=== PATIENT | male | born 1930 | race Caucasian/White ===

== ENCOUNTER 2017-09-03 16:42 | Inpatient (IN) | payer OTHER, MEDICAID ==
[~2017-09-03] VITALS: Ht 175.3 cm; Wt 88.9 kg
[2017-09-03] MEDS ORDERED: FLUT16SP BNOSTRILS (16:58)
[2017-09-03] MEDS ORDERED: MAGN400O6 PO (16:58)
[2017-09-03] MEDS ORDERED: PYRI50TA74 PO (16:58)
[2017-09-03] MEDS ORDERED: AMLO10TA2 PO (16:58)
[2017-09-03] MEDS ORDERED: PSYL0.5211 PO (16:58)
[2017-09-03] MEDS ORDERED: PROM6.25 PO (16:58)
[2017-09-03] MEDS ORDERED: FURO-145 PO (16:58)
[2017-09-03] MEDS ORDERED: BISA10SU8 RC (16:58)
[2017-09-03] MEDS ORDERED: ASPI-1169 PO (16:58)
[2017-09-03] MEDS ORDERED: ACET-868 PO (16:58)
[2017-09-03] MEDS ORDERED: DONE10TA44 PO (16:58)
[2017-09-03] MEDS ORDERED: ATOR40TA PO (16:58)
[2017-09-03 17:20] LABS: BASOPHILS % (AUTO) 0.2 % (0.0-2.0); EOSINOPHILS # (AUTO) 0.2 /CMM (0.0-0.7); HEMATOCRIT 41 % (39-51); HEMOGLOBIN 13.9 g/dL (13.5-17.5); LYMPHOCYTES # (AUTO) 2.7 /CMM (0.8-4.8); LYMPHOCYTES % (AUTO) 31.3 % (20.0-44.0); MEAN CORPUSCULAR HEMOGLOBIN 29 PG (26.0-33.0); MEAN CORPUSCULAR HGB CONC 34 g/dl (31.0-36.0); MEAN CORPUSCULAR VOLUME 87 fL (80-96); MONOCYTES # (AUTO) 0.7 /CMM (0.1-1.30); MONOCYTES % (AUTO) 7.7 % (2.0-12.0); NEUTROPHILS # (AUTO) 5.2 /CMM (1.8-8.9); NEUTROPHILS % (AUTO) 58.8 % (43.0-81.0); PLATELET COUNT (AUTO) 417 /CMM (150-450); RDW COEFFICIENT OF VARIATION 13.7 (11.5-15.0); RED BLOOD CELL COUNT(AUTO) 4.74 MIL/uL (4.5-6.0); WHITE BLOOD COUNT (AUTO) 8.8 K/uL (4.3-11.0)
[2017-09-03 17:34] LABS: INR 0.94 (0.85-1.15)
[2017-09-03 17:40] LABS: CALCIUM, SERUM 9.7 mg/dL (8.5-10.1); CARBON DIOXIDE 28 mmol/L (21-32); CHLORIDE 105 mmol/L (98-107); CREATININE 1.7 mg/dL (0.6-1.3); GLUCOSE 120 mg/dL (74-106); POTASSIUM 4.7 mmol/L (3.5-5.1); SODIUM SERUM 142 mmol/L (136-145); UREA NITROGEN, BLOOD 27 mg/dL (7-18)
[2017-09-03 17:49] LABS: TROPONIN I < 0.017 ng/mL (0.00-0.056)
[2017-09-03] MEDS ORDERED: NITROGLYCERIN PACKET 1 GM PACKET ONE (18:37)
[2017-09-03] MEDS ORDERED: ASPIRIN 81 MG TAB.CHEW ONE (18:38)
[2017-09-03 19:00] VITALS: BP 142/90
[2017-09-03] MEDS ORDERED: NITROGLYCERIN PACKET 1 GM PACKET TD ONE (19:00)
[2017-09-03] MEDS ORDERED: ASPIRIN 81 MG TAB.CHEW PO SCH (19:00)
[2017-09-03] MEDS ORDERED: ACETAMINOPHEN 325 MG TABLET PO PRN (19:30)
[2017-09-03] MEDS ORDERED: ONDANSETRON HCL/PF 4 MG/2 ML VIAL IVP PRN (19:30)
[2017-09-03] MEDS ORDERED: BISACODYL SUPP (10 MG) 10 MG/SUPP.RECT SUPP.RECT RC PRN (19:30)
[2017-09-03 20:00] VITALS: BP 129/88
[2017-09-03] MEDS: FUROSEMIDE 20 MG TABLET PO SCH (20:15)
[2017-09-03 20:37] VITALS: BP 110/82
[2017-09-03] MEDS: MORPHINE SULFATE INJ 4 MG/ML DISP.SYRIN IV PRN ×2 (20:37→21:24)
[2017-09-03] MEDS: ATORVASTATIN 40 MG TABLET PO SCH (21:24)
[2017-09-03 21:54] VITALS: BP 132/74
[2017-09-03] MEDS: NITROGLYCERIN 0.4 MG/TAB BOTTLE SL PRN (23:10)
[2017-09-03] MEDS: AMLODIPINE BESYLATE 10 MG TABLET PO SCH (23:12)
[2017-09-03 23:15] VITALS: BP 127/85
[2017-09-04] VITALS: BP 130/77
[2017-09-04] MEDS: NITROGLYCERIN 0.4 MG/TAB BOTTLE SL PRN (01:39)
[2017-09-04 03:46] LABS: BASOPHILS % (AUTO) 0.2 % (0.0-2.0); HEMATOCRIT 40 % (39-51); HEMOGLOBIN 13.1 g/dL (13.5-17.5); LYMPHOCYTES # (AUTO) 1.3 /CMM (0.8-4.8); LYMPHOCYTES % (AUTO) 14.1 % (20.0-44.0); MEAN CORPUSCULAR HEMOGLOBIN 29 PG (26.0-33.0); MEAN CORPUSCULAR HGB CONC 33 g/dl (31.0-36.0); MEAN CORPUSCULAR VOLUME 88 fL (80-96); MONOCYTES # (AUTO) 0.8 /CMM (0.1-1.30); MONOCYTES % (AUTO) 8.8 % (2.0-12.0); NEUTROPHILS # (AUTO) 7.2 /CMM (1.8-8.9); NEUTROPHILS % (AUTO) 76.9 % (43.0-81.0); PLATELET COUNT (AUTO) 368 /CMM (150-450); RDW COEFFICIENT OF VARIATION 14.9 (11.5-15.0); RED BLOOD CELL COUNT(AUTO) 4.48 MIL/uL (4.5-6.0); WHITE BLOOD COUNT (AUTO) 9.3 K/uL (4.3-11.0)
[2017-09-04 04:00] VITALS: BP 131/85
[2017-09-04 04:03] LABS: CALCIUM, SERUM 9.7 mg/dL (8.5-10.1); CARBON DIOXIDE 26 mmol/L (21-32); CHLORIDE 105 mmol/L (98-107); GLUCOSE 131 mg/dL (74-106); MAGNESIUM 2.2 mg/dL (1.8-2.4); PHOSPHORUS 3.7 mg/dL (2.5-4.9); POTASSIUM 5.2 mmol/L (3.5-5.1); SODIUM SERUM 139 mmol/L (136-145); UREA NITROGEN, BLOOD 33 mg/dL (7-18)
[2017-09-04 04:06] LABS: CHOLESTEROL 122 mg/dL (<200); HDL CHOLESTEROL 64 mg/dL (40-60); LDL 51 mg/dL (0-99); TRIGLYCERIDES 70 mg/dL (30-150)
[2017-09-04 06:57] VITALS: BP 129/85
[2017-09-04] MEDS: DONEPEZIL 5 MG TABLET PO SCH (09:01)
[2017-09-04] MEDS: FUROSEMIDE 20 MG TABLET PO SCH (09:01)
[2017-09-04] MEDS: FLUTICASONE PROPIONATE 16 GM BOTTLE NS SCH (09:01)
[2017-09-04] MEDS: ASPIRIN 81 MG TAB.CHEW PO SCH (09:01)
[2017-09-04] MEDS: MORPHINE SULFATE INJ 4 MG/ML DISP.SYRIN IV PRN ×2 (09:15→20:04)
[2017-09-04 12:28] VITALS: BP 142/93
[2017-09-04] MEDS ORDERED: SODIUM POLYSTYRENE SULFONATE 15 G/60 ML BOTTLE PO ONE (13:00)
[2017-09-04] MEDS ORDERED: Z GUARD REMEDY 2 OZ OINT TP PRN (15:00)
[2017-09-04 16:54] VITALS: BP 132/85
[2017-09-04 20:00] VITALS: BP 137/70
[2017-09-04] MEDS ORDERED: PANTOPRAZOLE 40 MG VIAL IV SCH (21:00)
[2017-09-04] MEDS: ATORVASTATIN 40 MG TABLET PO SCH (21:46)
[2017-09-04] MEDS: AMLODIPINE BESYLATE 10 MG TABLET PO SCH (21:51)
[2017-09-05] VITALS: BP 124/85
[2017-09-05 08:00] VITALS: BP 135/92
[2017-09-05] MEDS: DONEPEZIL 5 MG TABLET PO SCH (08:58)
[2017-09-05] MEDS: FUROSEMIDE 20 MG TABLET PO SCH (08:58)
[2017-09-05] MEDS: ASPIRIN 81 MG TAB.CHEW PO SCH (08:58)
[2017-09-05] MEDS: FLUTICASONE PROPIONATE 16 GM BOTTLE NS SCH (08:58)
[2017-09-05] MEDS: Z GUARD REMEDY 2 OZ OINT TP SCH (08:59)
[2017-09-05 09:32] LABS: CALCIUM, SERUM 9.7 mg/dL (8.5-10.1); CARBON DIOXIDE 28 mmol/L (21-32); CHLORIDE 101 mmol/L (98-107); CREATININE 1.7 mg/dL (0.6-1.3); GLUCOSE 114 mg/dL (74-106); POTASSIUM 3.8 mmol/L (3.5-5.1); SODIUM SERUM 140 mmol/L (136-145); UREA NITROGEN, BLOOD 29 mg/dL (7-18)
[2017-09-05] MEDS: PANTOPRAZOLE 40 MG VIAL IV SCH ×2 (09:39→21:06)
[2017-09-05 09:46] LABS: BASOPHILS % (AUTO) 0.3 % (0.0-2.0); EOSINOPHILS # (AUTO) 0.1 /CMM (0.0-0.7); EOSINOPHILS % (AUTO) 0.6 % (0.0-6.0); HEMATOCRIT 40 % (39-51); HEMOGLOBIN 13.5 g/dL (13.5-17.5); LYMPHOCYTES # (AUTO) 1.7 /CMM (0.8-4.8); LYMPHOCYTES % (AUTO) 16.5 % (20.0-44.0); MEAN CORPUSCULAR HEMOGLOBIN 30 PG (26.0-33.0); MEAN CORPUSCULAR HGB CONC 33 g/dl (31.0-36.0); MEAN CORPUSCULAR VOLUME 88 fL (80-96); MONOCYTES # (AUTO) 1.2 /CMM (0.1-1.30); NEUTROPHILS # (AUTO) 7.2 /CMM (1.8-8.9); NEUTROPHILS % (AUTO) 70.6 % (43.0-81.0); PLATELET COUNT (AUTO) 320 /CMM (150-450); RDW COEFFICIENT OF VARIATION 14.8 (11.5-15.0); RED BLOOD CELL COUNT(AUTO) 4.55 MIL/uL (4.5-6.0); WHITE BLOOD COUNT (AUTO) 10.3 K/uL (4.3-11.0)
[2017-09-05] MEDS: METHOCARBAMOL (750MG) 750 MG TABLET PO SCH ×4 (11:18→22:01)
[2017-09-05] MEDS: DOCUSATE SODIUM 100 MG CAPSULE PO SCH ×2 (11:18→16:29)
[2017-09-05] MEDS: SENNOSIDES 8.6 MG TABLET PO SCH ×2 (11:18→21:07)
[2017-09-05 16:00] VITALS: BP 113/74
[2017-09-05 18:37] VITALS: BP 113/74
[2017-09-05 20:00] VITALS: BP 139/75
[2017-09-05] MEDS: AMLODIPINE BESYLATE 10 MG TABLET PO SCH (21:07)
[2017-09-05] MEDS: ATORVASTATIN 40 MG TABLET PO SCH (21:07)
[2017-09-05] MEDS: ZOLPIDEM TARTRATE 5 MG TABLET PO PRN (21:21)
[2017-09-05 22:00] VITALS: BP 139/75
[2017-09-06] MEDS ORDERED: MORPHINE SULFATE INJ 4 MG/ML DISP.SYRIN IV PRN
[2017-09-06] MEDS: METHOCARBAMOL (750MG) 750 MG TABLET PO SCH ×6 (03:02→22:24)
[2017-09-06 08:00] VITALS: BP 123/79
[2017-09-06] MEDS: DOCUSATE SODIUM 100 MG CAPSULE PO SCH ×2 (08:16→16:50)
[2017-09-06] MEDS: FUROSEMIDE 20 MG TABLET PO SCH (08:16)
[2017-09-06] MEDS: ASPIRIN 81 MG TAB.CHEW PO SCH (08:16)
[2017-09-06] MEDS: PANTOPRAZOLE 40 MG VIAL IV SCH ×2 (08:16→20:27)
[2017-09-06] MEDS: DONEPEZIL 5 MG TABLET PO SCH (08:16)
[2017-09-06] MEDS: FLUTICASONE PROPIONATE 16 GM BOTTLE NS SCH (08:28)
[2017-09-06] MEDS: Z GUARD REMEDY 2 OZ OINT TP SCH (08:29)
[2017-09-06 08:51] LABS: ABG OXYGEN SATURATION 89.5 % (92.0-98.5); ABG PCO2 38.1 mmHg (35.0-45.0); ABG PH 7.478 (7.350-7.450); ABG PO2 57.7 mmHg (75.0-100.0); AaDO2 183.7 mmHg; MetHb 0.4 % (0.0-1.5); O2Hb 88.2 % (94.0-97.0); SITE, ABG Right Radial; VENT MODE, BG 6 LPM SIMPLE O2 MASK
[2017-09-06 09:49] LABS: BASOPHILS % (AUTO) 0.4 % (0.0-2.0); EOSINOPHILS % (AUTO) 0.4 % (0.0-6.0); HEMATOCRIT 38 % (39-51); HEMOGLOBIN 12.8 g/dL (13.5-17.5); LYMPHOCYTES # (AUTO) 1.2 /CMM (0.8-4.8); LYMPHOCYTES % (AUTO) 11.6 % (20.0-44.0); MEAN CORPUSCULAR HEMOGLOBIN 30 PG (26.0-33.0); MEAN CORPUSCULAR HGB CONC 34 g/dl (31.0-36.0); MEAN CORPUSCULAR VOLUME 88 fL (80-96); MONOCYTES # (AUTO) 1.3 /CMM (0.1-1.30); MONOCYTES % (AUTO) 12.7 % (2.0-12.0); NEUTROPHILS # (AUTO) 7.7 /CMM (1.8-8.9); NEUTROPHILS % (AUTO) 74.9 % (43.0-81.0); PLATELET COUNT (AUTO) 294 /CMM (150-450); RDW COEFFICIENT OF VARIATION 14.7 (11.5-15.0); RED BLOOD CELL COUNT(AUTO) 4.29 MIL/uL (4.5-6.0); WHITE BLOOD COUNT (AUTO) 10.3 K/uL (4.3-11.0)
[2017-09-06 10:13] LABS: ALANINE AMINOTRANSFERASE 24 U/L (12-78); ALBUMIN 3.2 g/dL (3.4-5.0); ALKALINE PHOSPHATASE 90 U/L (46-116); ASPARTATE AMINOTRANSFERASE 31 U/L (15-37); BILIRUBIN,TOTAL 1.2 mg/dL (0.2-1.0); CALCIUM, SERUM 9.1 mg/dL (8.5-10.1); CARBON DIOXIDE 28 mmol/L (21-32); CHLORIDE 101 mmol/L (98-107); CREATININE 1.6 mg/dL (0.6-1.3); GLUCOSE 134 mg/dL (74-106); POTASSIUM 3.5 mmol/L (3.5-5.1); SODIUM SERUM 139 mmol/L (136-145); TOTAL PROTEIN, SERUM 7.4 g/dL (6.4-8.2); UREA NITROGEN, BLOOD 27 mg/dL (7-18)
[2017-09-06] MEDS: FUROSEMIDE 40 MG/4 ML VIAL IV SCH (10:21)
[2017-09-06] MEDS: ENOXAPARIN SODIUM 40 MG/0.4 ML DISP.SYRIN SQ SCH (10:24)
[2017-09-06] MEDS: IPRATROPIUM NEB FS 0.5 MG/2.5 ML AMPUL.NEB NEB SCH ×4 (10:33→22:41)
[2017-09-06] MEDS: ALBUTEROL HALF STRENGTH 1.25 MG/3 ML VIAL.NEB NEB SCH ×4 (10:33→22:41)
[2017-09-06 16:00] VITALS: BP 113/75
[2017-09-06 20:00] VITALS: BP 125/74
[2017-09-06] MEDS: ATORVASTATIN 40 MG TABLET PO SCH (22:24)
[2017-09-06] MEDS: SENNOSIDES 8.6 MG TABLET PO SCH (22:24)
[2017-09-06] MEDS: AMLODIPINE BESYLATE 10 MG TABLET PO SCH (22:25)
[2017-09-07] MEDS: METHOCARBAMOL (750MG) 750 MG TABLET PO SCH ×6 (02:36→22:49)
[2017-09-07] MEDS: IPRATROPIUM NEB FS 0.5 MG/2.5 ML AMPUL.NEB NEB SCH ×6 (03:47→23:48)
[2017-09-07] MEDS: ALBUTEROL HALF STRENGTH 1.25 MG/3 ML VIAL.NEB NEB SCH ×6 (03:47→23:48)
[2017-09-07 08:00] VITALS: BP 116/75
[2017-09-07] MEDS: ASPIRIN 81 MG TAB.CHEW PO SCH (08:21)
[2017-09-07] MEDS: FUROSEMIDE 20 MG TABLET PO SCH (08:21)
[2017-09-07] MEDS: DONEPEZIL 5 MG TABLET PO SCH (08:21)
[2017-09-07] MEDS: DOCUSATE SODIUM 100 MG CAPSULE PO SCH ×2 (08:21→18:07)
[2017-09-07] MEDS: FLUTICASONE PROPIONATE 16 GM BOTTLE NS SCH (08:21)
[2017-09-07] MEDS: Z GUARD REMEDY 2 OZ OINT TP SCH (08:55)
[2017-09-07] MEDS: FUROSEMIDE 40 MG/4 ML VIAL IV SCH (08:55)
[2017-09-07] MEDS: PANTOPRAZOLE 40 MG VIAL IV SCH ×2 (08:55→21:56)
[2017-09-07] MEDS: ENOXAPARIN SODIUM 40 MG/0.4 ML DISP.SYRIN SQ SCH (09:01)
[2017-09-07] MEDS ORDERED: BUPIVACAINE 0.5 % PF 150 MG/30 ML VIAL ONE (10:14)
[2017-09-07] MEDS ORDERED: LIDOCAINE 0.5% HCL 50 ML VIAL ONE ×2 (11:28→11:30)
[2017-09-07 12:00] VITALS: BP 126/70
[2017-09-07] MEDS ORDERED: POTASSIUM CHLORIDE 20 MEQ POWDER PACKET PO ONE (12:00)
[2017-09-07] MEDS: Magnesium 1GM/D5W 100ML PREMIX 100 ML IV SCH ×2 (12:23→12:30)
[2017-09-07] MEDS: GABAPENTIN 300 MG CAPSULE PO SCH ×2 (12:45→18:07)
[2017-09-07 16:00] VITALS: BP 119/74
[2017-09-07 16:40] LABS: ABG BASE EXCESS 7.4 mmol/L; ABG PCO2 40.8 mmHg (35.0-45.0); ABG PH 7.501 (7.350-7.450); ABG PO2 77.7 mmHg (75.0-100.0); AaDO2 449.9 mmHg; COHb 0.4 % (0.5-1.5); MetHb 0.3 % (0.0-1.5); O2Hb 94.3 % (94.0-97.0); SITE, ABG Right Radial; VENT MODE, BG NRB
[2017-09-07 19:57] VITALS: BP 122/75
[2017-09-07 20:00] VITALS: BP 122/75
[2017-09-07] MEDS: ATORVASTATIN 40 MG TABLET PO SCH (21:56)
[2017-09-07] MEDS: SENNOSIDES 8.6 MG TABLET PO SCH (21:56)
[2017-09-07] MEDS: AMLODIPINE BESYLATE 10 MG TABLET PO SCH (21:57)
[2017-09-07] MEDS: ZOLPIDEM TARTRATE 5 MG TABLET PO PRN (22:50)
[2017-09-08] VITALS: BP 114/74
[2017-09-08] MEDS: GABAPENTIN 300 MG CAPSULE PO SCH ×5 (00:03→23:11)
[2017-09-08] MEDS: METHOCARBAMOL (750MG) 750 MG TABLET PO SCH ×6 (02:58→23:11)
[2017-09-08 04:00] VITALS: BP 120/67
[2017-09-08] MEDS: ALBUTEROL HALF STRENGTH 1.25 MG/3 ML VIAL.NEB NEB SCH ×6 (04:26→23:03)
[2017-09-08] MEDS: IPRATROPIUM NEB FS 0.5 MG/2.5 ML AMPUL.NEB NEB SCH ×6 (04:26→23:03)
[2017-09-08 08:00] VITALS: BP_SYST 104; BP_SYST 118; BP_SYST 138; BP_DIAS 61; BP_DIAS 65; BP_DIAS 76
[2017-09-08] MEDS: DONEPEZIL 5 MG TABLET PO SCH (08:29)
[2017-09-08] MEDS: ASPIRIN 81 MG TAB.CHEW PO SCH (08:29)
[2017-09-08] MEDS: PANTOPRAZOLE 40 MG VIAL IV SCH ×2 (08:29→21:05)
[2017-09-08] MEDS: FUROSEMIDE 20 MG TABLET PO SCH (08:29)
[2017-09-08] MEDS: FLUTICASONE PROPIONATE 16 GM BOTTLE NS SCH (08:29)
[2017-09-08] MEDS: DOCUSATE SODIUM 100 MG CAPSULE PO SCH ×2 (08:29→16:26)
[2017-09-08] MEDS: ENOXAPARIN SODIUM 40 MG/0.4 ML DISP.SYRIN SQ SCH (08:30)
[2017-09-08] MEDS: Z GUARD REMEDY 2 OZ OINT TP SCH (08:30)
[2017-09-08] MEDS: LIDOCAINE 5% (PATCH) 1 EA PATCH TP SCH (10:31)
[2017-09-08] MEDS: GUAIFENESIN LA 600 MG TABLET.SA PO SCH ×2 (10:31→21:05)
[2017-09-08 12:00] VITALS: BP 112/65
[2017-09-08 16:00] VITALS: BP 104/61
[2017-09-08 20:00] VITALS: BP 117/72
[2017-09-08] MEDS: SENNOSIDES 8.6 MG TABLET PO SCH (21:05)
[2017-09-08] MEDS: ATORVASTATIN 40 MG TABLET PO SCH (21:05)
[2017-09-08] MEDS: AMLODIPINE BESYLATE 10 MG TABLET PO SCH (21:06)
[2017-09-09] VITALS: BP_SYST 101; BP_SYST 119; BP_DIAS 69; BP_DIAS 71
[2017-09-09] MEDS: ZOLPIDEM TARTRATE 5 MG TABLET PO PRN ×2 (00:43→23:07)
[2017-09-09] MEDS: IPRATROPIUM NEB FS 0.5 MG/2.5 ML AMPUL.NEB NEB SCH ×6 (03:01→23:52)
[2017-09-09] MEDS: ALBUTEROL HALF STRENGTH 1.25 MG/3 ML VIAL.NEB NEB SCH ×6 (03:01→23:52)
[2017-09-09] MEDS: METHOCARBAMOL (750MG) 750 MG TABLET PO SCH ×6 (03:37→23:07)
[2017-09-09 04:00] VITALS: BP 109/58
[2017-09-09] MEDS: GABAPENTIN 300 MG CAPSULE PO SCH ×4 (05:19→23:07)
[2017-09-09 06:56] LABS: BASOPHILS % (AUTO) 0.2 % (0.0-2.0); EOSINOPHILS # (AUTO) 0.3 /CMM (0.0-0.7); HEMATOCRIT 32 % (39-51); HEMOGLOBIN 10.9 g/dL (13.5-17.5); LYMPHOCYTES # (AUTO) 1.2 /CMM (0.8-4.8); LYMPHOCYTES % (AUTO) 18.3 % (20.0-44.0); MEAN CORPUSCULAR HEMOGLOBIN 30 PG (26.0-33.0); MEAN CORPUSCULAR HGB CONC 34 g/dl (31.0-36.0); MEAN CORPUSCULAR VOLUME 89 fL (80-96); MONOCYTES # (AUTO) 0.9 /CMM (0.1-1.30); MONOCYTES % (AUTO) 13.5 % (2.0-12.0); NEUTROPHILS # (AUTO) 4.1 /CMM (1.8-8.9); PLATELET COUNT (AUTO) 255 /CMM (150-450); RDW COEFFICIENT OF VARIATION 15.3 (11.5-15.0); RED BLOOD CELL COUNT(AUTO) 3.63 MIL/uL (4.5-6.0); WHITE BLOOD COUNT (AUTO) 6.4 K/uL (4.3-11.0)
[2017-09-09 07:15] LABS: CALCIUM, SERUM 8.1 mg/dL (8.5-10.1); CARBON DIOXIDE 33 mmol/L (21-32); CHLORIDE 99 mmol/L (98-107); CREATININE 1.3 mg/dL (0.6-1.3); GLUCOSE 114 mg/dL (74-106); MAGNESIUM 2.1 mg/dL (1.8-2.4); PHOSPHORUS 3.4 mg/dL (2.5-4.9); POTASSIUM 3.3 mmol/L (3.5-5.1); SODIUM SERUM 139 mmol/L (136-145); UREA NITROGEN, BLOOD 18 mg/dL (7-18)
[2017-09-09 08:00] VITALS: BP 111/66
[2017-09-09] MEDS: GUAIFENESIN LA 600 MG TABLET.SA PO SCH ×2 (08:28→21:09)
[2017-09-09] MEDS: DOCUSATE SODIUM 100 MG CAPSULE PO SCH ×2 (08:29→17:31)
[2017-09-09] MEDS: Z GUARD REMEDY 2 OZ OINT TP SCH (08:29)
[2017-09-09] MEDS: DONEPEZIL 5 MG TABLET PO SCH (08:29)
[2017-09-09] MEDS: PANTOPRAZOLE 40 MG VIAL IV SCH ×2 (08:29→21:09)
[2017-09-09] MEDS: ASPIRIN 81 MG TAB.CHEW PO SCH (08:29)
[2017-09-09] MEDS: FUROSEMIDE 20 MG TABLET PO SCH (08:29)
[2017-09-09] MEDS: ENOXAPARIN SODIUM 40 MG/0.4 ML DISP.SYRIN SQ SCH (08:33)
[2017-09-09] MEDS: FLUTICASONE PROPIONATE 16 GM BOTTLE NS SCH (08:34)
[2017-09-09] MEDS ORDERED: POTASSIUM CHLORIDE 20 MEQ POWDER PACKET PO ONE (09:30)
[2017-09-09] MEDS: LIDOCAINE 5% (PATCH) 1 EA PATCH TP SCH (09:37)
[2017-09-09 11:46] LABS: ABG BASE EXCESS 7.9 mmol/L; ABG OXYGEN SATURATION 80.9 % (92.0-98.5); ABG PCO2 43.5 mmHg (35.0-45.0); ABG PH 7.486 (7.350-7.450); ABG PO2 45.6 mmHg (75.0-100.0); COHb 0.7 % (0.5-1.5); MetHb 0.6 % (0.0-1.5); O2Hb 79.8 % (94.0-97.0); SITE, ABG Left Radial; VENT MODE, BG RA
[2017-09-09 16:00] VITALS: BP 125/61
[2017-09-09] MEDS: APIXABAN 5 MG TABLET PO SCH (17:31)
[2017-09-09 20:00] VITALS: BP 126/74
[2017-09-09] MEDS: SENNOSIDES 8.6 MG TABLET PO SCH (21:09)
[2017-09-09] MEDS: ATORVASTATIN 40 MG TABLET PO SCH (21:09)
[2017-09-09] MEDS: AMLODIPINE BESYLATE 10 MG TABLET PO SCH (21:09)
[2017-09-10] VITALS: BP 101/71
[2017-09-10] MEDS: METHOCARBAMOL (750MG) 750 MG TABLET PO SCH ×6 (03:25→22:11)
[2017-09-10] MEDS: IPRATROPIUM NEB FS 0.5 MG/2.5 ML AMPUL.NEB NEB SCH ×5 (03:59→19:30)
[2017-09-10] MEDS: ALBUTEROL HALF STRENGTH 1.25 MG/3 ML VIAL.NEB NEB SCH ×5 (03:59→19:30)
[2017-09-10 04:00] VITALS: BP 110/72
[2017-09-10] MEDS: GABAPENTIN 300 MG CAPSULE PO SCH ×4 (05:26→23:47)
[2017-09-10 08:00] VITALS: BP 122/76
[2017-09-10 09:05] LABS: ABG BASE EXCESS 8.3 mmol/L; ABG OXYGEN SATURATION 89.4 % (92.0-98.5); ABG PCO2 49.1 mmHg (35.0-45.0); ABG PH 7.453 (7.350-7.450); ABG PO2 58.9 mmHg (75.0-100.0); AaDO2 111.8 mmHg; COHb 0.7 % (0.5-1.5); MetHb 0.5 % (0.0-1.5); O2Hb 88.3 % (94.0-97.0); SITE, ABG Right Radial; VENT MODE, BG Nasal Cannula
[2017-09-10] MEDS: Z GUARD REMEDY 2 OZ OINT TP SCH (09:35)
[2017-09-10] MEDS: PANTOPRAZOLE 40 MG VIAL IV SCH ×2 (09:38→22:11)
[2017-09-10] MEDS: FLUTICASONE PROPIONATE 16 GM BOTTLE NS SCH (09:39)
[2017-09-10] MEDS: LIDOCAINE 5% (PATCH) 1 EA PATCH TP SCH (10:12)
[2017-09-10] MEDS: DONEPEZIL 5 MG TABLET PO SCH (11:38)
[2017-09-10] MEDS: ASPIRIN 81 MG TAB.CHEW PO SCH (11:39)
[2017-09-10] MEDS: DOCUSATE SODIUM 100 MG CAPSULE PO SCH ×2 (11:39→17:33)
[2017-09-10] MEDS: GUAIFENESIN LA 600 MG TABLET.SA PO SCH ×2 (11:40→22:12)
[2017-09-10] MEDS: FUROSEMIDE 20 MG TABLET PO SCH (11:40)
[2017-09-10] MEDS: APIXABAN 5 MG TABLET PO SCH ×2 (13:24→17:33)
[2017-09-10] MEDS ORDERED: APIX5TAB PO (14:20)
[2017-09-10 16:00] VITALS: BP 126/78
[2017-09-10 20:00] VITALS: BP 126/79
[2017-09-10] MEDS: AMLODIPINE BESYLATE 10 MG TABLET PO SCH (22:11)
[2017-09-10] MEDS: ATORVASTATIN 40 MG TABLET PO SCH (22:12)
[2017-09-10] MEDS: SENNOSIDES 8.6 MG TABLET PO SCH (22:12)
[2017-09-10] MEDS: ZOLPIDEM TARTRATE 5 MG TABLET PO PRN (23:46)
[2017-09-11] VITALS: BP 125/72
[2017-09-11] MEDS: ALBUTEROL HALF STRENGTH 1.25 MG/3 ML VIAL.NEB NEB SCH ×5 (01:00→15:21)
[2017-09-11] MEDS: IPRATROPIUM NEB FS 0.5 MG/2.5 ML AMPUL.NEB NEB SCH ×5 (01:00→15:21)
[2017-09-11 04:00] VITALS: BP 125/74
[2017-09-11] MEDS: METHOCARBAMOL (750MG) 750 MG TABLET PO SCH ×4 (06:43→14:49)
[2017-09-11] MEDS: GABAPENTIN 300 MG CAPSULE PO SCH ×3 (06:43→17:13)
[2017-09-11 08:00] VITALS: BP 132/84
[2017-09-11 08:14] VITALS: BP 126/77
[2017-09-11] MEDS: ASPIRIN 81 MG TAB.CHEW PO SCH (08:33)
[2017-09-11] MEDS: DONEPEZIL 5 MG TABLET PO SCH (08:33)
[2017-09-11] MEDS: PANTOPRAZOLE 40 MG VIAL IV SCH (08:33)
[2017-09-11] MEDS: DOCUSATE SODIUM 100 MG CAPSULE PO SCH ×2 (08:33→17:13)
[2017-09-11] MEDS: APIXABAN 5 MG TABLET PO SCH ×2 (08:33→17:13)
[2017-09-11] MEDS: FUROSEMIDE 20 MG TABLET PO SCH (08:33)
[2017-09-11] MEDS: Z GUARD REMEDY 2 OZ OINT TP SCH (08:33)
[2017-09-11] MEDS: GUAIFENESIN LA 600 MG TABLET.SA PO SCH (08:33)
[2017-09-11] MEDS: FLUTICASONE PROPIONATE 16 GM BOTTLE NS SCH (08:35)
[2017-09-11] MEDS: LIDOCAINE 5% (PATCH) 1 EA PATCH TP SCH (11:13)
[2017-09-11 18:06] VITALS: BP 131/73
[2017-09-16] MEDS ORDERED: APIXABAN 5 MG TABLET PO SCH (17:00)
== END 2017-09-11 18:11 | DRG 682 ==
LOC: ER 16:43 → TELE 18:23 → MED 09-05 10:39 → TELE-TD 09-07 11:31 → TELE1 09-08 12:28 → MEDSG1 09-09 09:56
PROVIDERS: ADMIT Internal Medicine; ATTEND Internal Medicine
PROC: 0DB68ZX Excision of Stomach, Via Natural or Artificial Opening Endoscopic, Diagnostic (ICD-10-PCS; principal; 2017-09-07 09:30)
PROC: 0DB78ZX Excision of Stomach, Pylorus, Via Natural or Artificial Opening Endoscopic, Diagnostic (ICD-10-PCS; principal; 2017-09-07 09:30)
DX: N17.0 Acute kidney failure with tubular necrosis (principal); J96.01 Acute respiratory failure with hypoxia; I50.33 Acute on chronic diastolic (congestive) heart failure; I82.432 Acute embolism and thrombosis of left popliteal vein; M84.48XA Pathological fracture, other site, initial encounter for fracture; G20 Parkinson's disease; E87.5 Hyperkalemia; I13.0 Hypertensive heart and chronic kidney disease with heart failure and stage 1 through stage 4 chronic kidney disease, or unspecified chronic kidney disease; J98.11 Atelectasis; K44.9 Diaphragmatic hernia without obstruction or gangrene; I12.9 Hypertensive chronic kidney disease with stage 1 through stage 4 chronic kidney disease, or unspecified chronic kidney disease; N18.9 Chronic kidney disease, unspecified; R07.9 Chest pain, unspecified; I11.0 Hypertensive heart disease with heart failure; Z79.82 Long term (current) use of aspirin; Z79.899 Other long term (current) drug therapy; I70.0 Atherosclerosis of aorta; K59.00 Constipation, unspecified; E78.5 Hyperlipidemia, unspecified; F02.80 Dementia in other diseases classified elsewhere, unspecified severity, without behavioral disturbance, psychotic disturbance, mood disturbance, and anxiety; Z98.890 Other specified postprocedural states; Z86.73 Personal history of transient ischemic attack (TIA), and cerebral infarction without residual deficits
CPT/HCPCS: 36415; 36600; 71045-TC; 71250-TC; 80048-TC; 80053-TC; 80061-TC; 82803-TC; 82962-TC; 83735-TC; 84100-TC; 84484-TC; 85025-TC; 85730-TC; 87081-TC; 88305-TC; 88313-TC; 88342; 93307-TC; 93970-TC; 94760-TC; 94762-TC; 94799-TC; A4606; C9113; J1650; J1940; J2270; J3475; J3490; Z7610

== ENCOUNTER 2018-09-23 12:45 | Inpatient (IN) | payer OTHER, MEDICAID ==
[~2018-09-23] VITALS: Ht 175.3 cm; Wt 76.7 kg
[~2018-09-23 12:45] MED LIST: ACET-868 PO; AMLO10TA7 PO; APIX5TAB PO; ATOR40TA PO; BISA10SU8 RC; DONE10TA44 PO; FLUT16SP BNOSTRILS; FURO-145 PO; MAGN400O6 PO; PROM6.256 PO; PSYL0.5211 PO; PYRI50TA15 PO
--- NOTE | 2018-09-23 12:45 | NUR ---
PT BIB [facility] FROM [facility],SYNCOPAL EPISODE WHILE SEATED IN THE DINING AREA WHICH HE DENIES, PT IS AAOX3, NOT IN RESPIRATORY DISTRESS, V/S STABLE, HOOKED TO MONITOR, KEPT RESTED AND COMFORTABLE, WILL CONTINUE TO MONITOR.
--- NOTE | 2018-09-23 12:50 | NUR ---
SEEN AND EXAMINED BY DR. GAITAN.
--- NOTE | 2018-09-23 13:03 | NUR ---
ER PHLEB AT BEDSIDE FOR BLOOD DRAW.
[2018-09-23 13:22] LABS: CALCIUM, SERUM 9.6 mg/dL (8.5-10.1); CARBON DIOXIDE 24 mmol/L (21-32); CHLORIDE 102 mmol/L (98-107); CREATININE 1.6 mg/dL (0.6-1.3); GLUCOSE 127 mg/dL (74-106); POTASSIUM 3.8 mmol/L (3.5-5.1); SODIUM SERUM 138 mmol/L (136-145); UREA NITROGEN, BLOOD 15 mg/dL (7-18)
--- NOTE | 2018-09-23 13:29 | NUR ---
CALLED NURSING SUP REQUESTED TELE BED
[2018-09-23 13:32] LABS: ALANINE AMINOTRANSFERASE 10 U/L (12-78); ALBUMIN 3.8 g/dL (3.4-5.0); ALKALINE PHOSPHATASE 124 U/L (46-116); ASPARTATE AMINOTRANSFERASE 15 U/L (15-37); BILIRUBIN,DIRECT 0.1 mg/dL (0.0-0.2); BILIRUBIN,TOTAL 0.4 mg/dL (0.2-1.0); TOTAL PROTEIN, SERUM 8.4 g/dL (6.4-8.2)
--- NOTE | 2018-09-23 13:40 | NUR ---
PIER RUNNER AT BEDSIDE FOR XRAY.
[2018-09-23] MEDS ORDERED: PANT40TA2 PO (13:53)
[2018-09-23] MEDS ORDERED: IBAN150T16 PO (13:53)
[2018-09-23] MEDS ORDERED: POLY15DR40 EACHEYE (13:53)
[2018-09-23] MEDS ORDERED: METH-406 PO (13:53)
[2018-09-23] MEDS ORDERED: PSYL1PAC8 PO (13:53)
[2018-09-23] MEDS ORDERED: ATOR10TA PO (13:53)
[2018-09-23] MEDS ORDERED: CALC-7 PO (13:53)
[2018-09-23] MEDS ORDERED: ASPI-1169 PO (13:53)
[2018-09-23] MEDS ORDERED: TRAZ-182 PO (13:53)
[2018-09-23 14:22] LABS: BASOPHILS # (AUTO) 0.1 /CMM (0.0-0.2); EOSINOPHILS % (AUTO) 2.1 % (0.0-6.0); HEMATOCRIT 39 % (39-51); HEMOGLOBIN 12.7 g/dL (13.5-17.5); LYMPHOCYTES # (AUTO) 2.5 /CMM (0.8-4.8); LYMPHOCYTES % (AUTO) 32.8 % (20.0-44.0); MEAN CORPUSCULAR HGB CONC 32 g/dl (31.0-36.0); MEAN CORPUSCULAR VOLUME 82 fL (80-96); MONOCYTES # (AUTO) 0.7 /CMM (0.1-1.30); MONOCYTES % (AUTO) 9.5 % (2.0-12.0); NEUTROPHILS # (AUTO) 4.2 /CMM (1.8-8.9); NEUTROPHILS % (AUTO) 54.6 % (43.0-81.0); PLATELET COUNT (AUTO) 419 /CMM (150-450); RED BLOOD CELL COUNT(AUTO) 4.76 MIL/uL (4.5-6.0); WHITE BLOOD COUNT (AUTO) 7.6 K/uL (4.3-11.0)
[2018-09-23 14:35] LABS: LYMPHOCYTES % (MANUAL) 40 % (16-48); MONOCYTES % (MANUAL) 10 % (0-11.0); NEUTROPHILS % (MANUAL) 50 (42-76)
[2018-09-23] MEDS ORDERED: TRAZODONE 50 MG TABLET PO PRN (15:00)
[2018-09-23] MEDS ORDERED: HYDROCODONE/APAP 5/325MG 1 EACH TABLET PO PRN (15:00)
[2018-09-23] MEDS ORDERED: MAGNESIUM HYDROXIDE 30 ML UDC PO PRN (15:00)
[2018-09-23] MEDS ORDERED: ZOLPIDEM TARTRATE 5 MG TABLET PO PRN (15:00)
[2018-09-23] MEDS ORDERED: ONDANSETRON HCL/PF 4 MG/2 ML VIAL IVP PRN (15:00)
[2018-09-23] MEDS ORDERED: IV NS 0.9% 1,000 ML IV ONE (15:00)
[2018-09-23] MEDS ORDERED: ACETAMINOPHEN 325 MG TABLET PO PRN (15:00)
[2018-09-23] MEDS ORDERED: MAG HYDROX/AL HYDROX/SIMETH 30 ML UDC PO PRN (15:00)
[2018-09-23] MEDS ORDERED: Z GUARD REMEDY 2 OZ OINT TP PRN (15:00)
--- NOTE | 2018-09-23 15:11 | NUR ---
FAX CLINICALS AND FACESHEET [phone] FAX [phone] [facility]
--- NOTE | 2018-09-23 17:32 | NUR ---
AFTER [facility] CASE MANAGEMENT CALLED AT [phone],SPOKE WITH LOLI THEN I WAS TX TO DR MACARIO WHO GAVE AUTHORIZATION FOR PATIENT TO STAY HERE AT [facility]. HE ALSO SAID THAT THE REST OF THE PAPERS/DOCUMENTS WILL BE TAKEN CARE OF TOMORROW DURING BUSINESS [facility]
--- NOTE | 2018-09-23 17:55 | NUR ---
REPORT GIVEN TO DELILAH CERVANTES FOR SALLY
--- NOTE | 2018-09-23 18:20 | NUR ---
PATIENT TRANSFERRED TO [facility] BY [facility] VIA ACLS PROTOCOL. NO ACUTE DISTRESS. DENIES ANY PAIN OR DISCOMFORT. DELILAH RN AT BEDSIDE.
--- NOTE | 2018-09-23 18:25 | NUR ---
SENIOR PROJECT MANAGER RECEIVING NOTES RECEIVED PT FROM ER BY BILLY VASQUEZ TO ROOM 111-1.ALERT/ORIENTED X4.CAN AMBULATE WELL WITH MINIMAL ASSISTANCE.ON TELE HR IS SR.ON ROOM AIR,TOLERATING WELL.NO SOB AND ACUTE DISTRESS NOTED.IV LINE ON LEFT FA G20,SITE IS CLEAN,DRY AND INTACT.NO INFILTRATION NOTED.VITAL SIGNS CHECKED AND RECORDED.BELONGING LIST IS SIGNED.DENIES PAIN AND SYNCOPE,CHEST PAIN.SAFETY IS MAINTAINED AT ALL TIMES.CALL LIGHT IS WITHIN REACH.PT IS CLEAN AND DRY.
--- NOTE | 2018-09-23 19:05 | NUR ---
MS RN CLOSING NOTES PT IS ON BED.ON ROOM AIR,TOLERATING WELL.NO SIGNIFICANT CHANGES NOTED IN THE SHIFT.ENDORSED TO SIDER MECHANIC BILLY ZAVALA.
--- NOTE | 2018-09-23 19:55 | NUR ---
RN ADMITTING/OPENING NOTES RECEIVED REPORT FROM MARY CERVANTES. Pt ARRIVED ON FLOOR AROUND 1820 FROM ER. Pt IS FROM [facility]. Pt IS A/OX3, WITH SOME FORGETFULNESS. Pt WAS ABLE TO STATE NAME, , KNOWS HE IS IN SOME KIND OF HOSPITAL, KNOWS WHO THE CURRENT [facility] PRESIDENT IS, BUT WAS UNABLE TO STATE THE CURRENT YEAR CORRECTLY. Pt IS VERBAL & ABLE TO MAKE NEEDS KNOWN. NO S/S OF ACUTE OF DISTRESS OR SOB NOTED. NO C/O PAIN AT THIS TIME. DENIES DIZZINESS OR HEADACHE OR ANY CHEST DISCOMFORT. IV ACCESS ON LFA #20G. SAFETY MEASURES IN PLACE. BED LOW, LOCKED, HOB ELEVATED, SIDE RAILS UP, CALL LIGHT AND BEDSIDE TABLE WITHIN REACH. BED ALARM ON. WILL CONTINUE TO MONITOR Pt's CONDITION AND SAFETY THROUGHOUT THE NIGHT.
[2018-09-23 20:00] VITALS: BP 141/71
[2018-09-24] MEDS: ATORVASTATIN 10 MG TABLET PO SCH ×2 (00:04→22:41)
[2018-09-24] MEDS: CALCIUM CARB 250MG /VITAMIN D 1 UDTAB PO SCH ×3 (00:09→16:30)
[2018-09-24] MEDS: AMLODIPINE BESYLATE 10 MG TABLET PO SCH ×2 (00:19→22:41)
[2018-09-24 04:00] VITALS: BP 136/78
[2018-09-24 06:29] LABS: BASOPHILS % (AUTO) 0.9 % (0.0-2.0); EOSINOPHILS % (AUTO) 2.3 % (0.0-6.0); HEMATOCRIT 31 % (39-51); HEMOGLOBIN 10.3 g/dL (13.5-17.5); LYMPHOCYTES # (AUTO) 1.4 /CMM (0.8-4.8); LYMPHOCYTES % (AUTO) 28.1 % (20.0-44.0); MEAN CORPUSCULAR HGB CONC 33 g/dl (31.0-36.0); MEAN CORPUSCULAR VOLUME 81 fL (80-96); MONOCYTES # (AUTO) 0.6 /CMM (0.1-1.30); MONOCYTES % (AUTO) 12.9 % (2.0-12.0); NEUTROPHILS # (AUTO) 2.8 /CMM (1.8-8.9); NEUTROPHILS % (AUTO) 55.8 % (43.0-81.0); PLATELET COUNT (AUTO) 332 /CMM (150-450); RED BLOOD CELL COUNT(AUTO) 3.83 MIL/uL (4.5-6.0)
--- NOTE | 2018-09-24 06:30 | NUR ---
RN CLOSING NOTES NO SIGNIFICANT CHANGES IN Pt's CONDITION. Pt REMAIN STABLE PER BASELINE. NO S/S OF ACUTE DISTRESS OR SOB NOTED DURING THE NIGHT. Pt IS RESTING IN BED COMFORTABLY. RESPIRATIONS EVEN AND UNLABORED. ALL NEEDS MET AND ATTENDED TO. SAFETY MEASURES IN PLACE. WILL ENDORSE TO DAYSHIFT RN FOR Pt's SALLY.
[2018-09-24 06:49] LABS: CALCIUM, SERUM 8.8 mg/dL (8.5-10.1); CARBON DIOXIDE 30 mmol/L (21-32); CHLORIDE 103 mmol/L (98-107); CREATININE 1.6 mg/dL (0.6-1.3); GLUCOSE 98 mg/dL (74-106); MAGNESIUM 1.8 mg/dL (1.8-2.4); POTASSIUM 4.1 mmol/L (3.5-5.1); SODIUM SERUM 139 mmol/L (136-145); UREA NITROGEN, BLOOD 18 mg/dL (7-18)
[2018-09-24 07:03] LABS: CHOLESTEROL 105 mg/dL (<200); HDL CHOLESTEROL 41 mg/dL (40-60); LDL 53 mg/dL (0-99); TRIGLYCERIDES 79 mg/dL (30-150)
--- NOTE | 2018-09-24 07:20 | NUR ---
RN OPENING NOTES RECEIVED PATIENT IN BED ASLEEP, BUT EASILY AROUSABLE. PATIENT IS ALERT AND ORIENTED X3. ON ROOM AIR. SAYING HE IS AMBULATING AT THE FACILITY, HAS AN ORDER FOR PT EVAL. HAS A LEFT FOREARM #20 WITH NS AT 125ML/HR ONCE, STILL RUNNING. BED LOCKED AND ON LOW POSITION. CALL LIGHT WITHIN REACH. WILL CONTINUE TO MONITOR PATIENT
[2018-09-24 08:00] VITALS: BP 123/75
[2018-09-24] MEDS: PANTOPRAZOLE 40 MG TABLET.DR PO SCH (08:18)
[2018-09-24] MEDS: DONEPEZIL 5 MG TABLET PO SCH (08:18)
[2018-09-24] MEDS: ASPIRIN 81 MG TAB.CHEW PO SCH (08:18)
[2018-09-24] MEDS: FLUTICASONE PROPIONATE 16 GM BOTTLE NS SCH (08:46)
--- NOTE | 2018-09-24 10:15 | NUR ---
RN NOTE ORTHOSTATIC BLOOD PRESSURE WAS ORDERED BY DR. DIAZ: STANDING 112/77 112 SITTING 130/81 98 LYING 138/72 74
--- NOTE | 2018-09-24 14:48 | NUR ---
RN NOTE PATIENT REQUESTED FOR ME TO CALL HIS PRIMARY DOCTOR (PER DR. ESCALERA, HE TALKED TO THE PATIENT'S PRIMARY AND DECIDED PATIENT WILL STAY FOR ANOTHER NIGHT). CALLED [facility] TO ASK FOR THE NUMBER, THEY GAVE ME THE PATIENT'S DPOA'S NUMBER (BLAIRE [phone]). PATIENT TALKED TO HIS FRIEND AND WAS CALMED AFTER.
[2018-09-24 16:00] VITALS: BP 125/74
--- NOTE | 2018-09-24 18:51 | NUR ---
RN CLOSING NOTE PATIENT IN BED AWAKE AND ALERT. AWARE OF WHAT IS GOING ON. ON ROOM AIR, NO SOB. NO COMPLAINS OF ANY PAIN. USES URINAL. AMBULATORY WITH ASSIST, PT EVAL DONE TODAY. HAS A LEFT FOREARM #20 SALINE LOCKED. ALL MEDS ARE GIVEN. ALL NEEDS ARE MET. BED LOCKED AND IN LOW POSITION. CALL LIGHT WITHIN REACH. WILL ENDORSE TO NOC SHIFT
--- NOTE | 2018-09-24 19:35 | NUR ---
RN NOTES RECEIVED PATIENT IN BED AWAKE, NO SIGNS OF ACUTE DISTRESS NOTED, NO COMPLAINTS OF PAIN OR DISCOMFORT, PATIENT IS ALERT AND ORIENTED X3. ON ROOM AIR. SAYING HE IS AMBULATING AT THE FACILITY, IV ACCES ON HIS LEFT FOREARM #20, BED IN LOCKED AND ON LOW POSITION. CALL LIGHT WITHIN REACH. WILL CONTINUE TO MONITOR ACCORDINGLY.
[2018-09-24 20:00] VITALS: BP 123/72
[2018-09-25] VITALS: BP 123/92
--- NOTE | 2018-09-25 06:43 | NUR ---
RN NOTES PATIENT IN BED, ABLE TO REST AND SLEEP WITH LONG INTERVALS, PATIENT IS ALERT AND ORIENTED X3. ON ROOM AIR. ALL SAFETY MEASURES MAINTAINED, BED LOCKED AND ON LOW POSITION. CALL LIGHT WITHIN REACH. WILL ENDORSE TO AM SHIFT FOR CONTINUITY OF CARE.
--- NOTE | 2018-09-25 07:28 | NUR ---
MS/RN OPENING NOTE PATIENT IN BED IN STABLE CONDITION. A/O X 3. NO SIGNS OF ACUTE DISTRESS. NO COMPLAIN OF PAIN OR DISCOMFORT AT THIS TIME. AMBULATES WITH ASSIST. ALL NEEDS ATTENDED TO. CALL LIGHT WITHIN REACH. WILL CONTINUE TO MONITOR TO ENSURE SAFETY.
[2018-09-25 07:40] LABS: BASOPHILS % (AUTO) 0.8 % (0.0-2.0); EOSINOPHILS % (AUTO) 2.7 % (0.0-6.0); HEMATOCRIT 32 % (39-51); HEMOGLOBIN 10.6 g/dL (13.5-17.5); LYMPHOCYTES # (AUTO) 1.5 /CMM (0.8-4.8); LYMPHOCYTES % (AUTO) 30.4 % (20.0-44.0); MEAN CORPUSCULAR HGB CONC 33 g/dl (31.0-36.0); MEAN CORPUSCULAR VOLUME 81 fL (80-96); MONOCYTES # (AUTO) 0.6 /CMM (0.1-1.30); MONOCYTES % (AUTO) 11.6 % (2.0-12.0); NEUTROPHILS # (AUTO) 2.7 /CMM (1.8-8.9); NEUTROPHILS % (AUTO) 54.5 % (43.0-81.0); PLATELET COUNT (AUTO) 324 /CMM (150-450); RED BLOOD CELL COUNT(AUTO) 3.95 MIL/uL (4.5-6.0); WHITE BLOOD COUNT (AUTO) 4.9 K/uL (4.3-11.0)
[2018-09-25 07:47] LABS: CALCIUM, SERUM 8.8 mg/dL (8.5-10.1); CARBON DIOXIDE 29 mmol/L (21-32); CHLORIDE 105 mmol/L (98-107); CREATININE 1.4 mg/dL (0.6-1.3); GLUCOSE 96 mg/dL (74-106); SODIUM SERUM 141 mmol/L (136-145); UREA NITROGEN, BLOOD 20 mg/dL (7-18)
[2018-09-25 08:00] VITALS: BP 140/82
[2018-09-25 08:02] VITALS: BP 140/82
[2018-09-25] MEDS: FLUTICASONE PROPIONATE 16 GM BOTTLE NS SCH (08:21)
[2018-09-25] MEDS: DONEPEZIL 5 MG TABLET PO SCH (08:22)
[2018-09-25] MEDS: CALCIUM CARB 250MG /VITAMIN D 1 UDTAB PO SCH (08:22)
[2018-09-25] MEDS: ASPIRIN 81 MG TAB.CHEW PO SCH (08:22)
[2018-09-25] MEDS: PANTOPRAZOLE 40 MG TABLET.DR PO SCH (08:22)
--- NOTE | 2018-09-25 09:11 | NUR ---
MS/RN ORTHOSTATIC BLOOD PRESSURE LYING BP 140/82, 69. SITTING BP 137/94, 74. STANDING BP 124/76, 86.
--- NOTE | 2018-09-25 12:10 | NUR ---
09/25/18 Per hospitalist pt stable for dc back to [facility] [phone] today. Called construction equipment mechanic helper cm at [facility] spoke with intake notifying dc. Per intake will page construction equipment mechanic helper cm to arranged transportation. Called facility spoke with [facility] agreed to accept pt back today. Pt will go to rm 220[address]. Awaiting respponse from insurance construction equipment mechanic helper cm. Addendum: 09/25/18 at 1210 by KHADIJAH RODRIGUEZ CMG Amended: Links added.
[2018-09-25] MEDS ORDERED: SOD FERRIC GLUC 125 MG in IV NS 0.9% 100 ML IV SCH (14:00)
--- NOTE | 2018-09-25 16:02 | NUR ---
MS/FEEDMOBILE DRIVER PATIENT DISCHARGE TO [facility] IN STABLE CONDITION. A/O X 2-3 WITH EPISODES OF FORGETFULNESS. NO SIGNS OF ACUTE DISTRESS. NO COMPLAIN OF PAIN OR DISCOMFORT. DISCHARGE EDUCATION AND TEACHINGS PROVIDED, VERBALIZED UNDERSTANDING. NAME BAND AND IV LINE REMOVED. ALL NEEDS ATTENDED TO. LEFT IN STABLE CONDITION VIA AMBULANCE ACCOMPANIED BY 2 CREDIT RISK MANAGER.
== END 2018-09-25 16:10 | DRG 73 ==
LOC: ER 12:47 → TELE1 18:16 → MEDSG1 09-24 07:13
PROVIDERS: ADMIT Nurse Practitioner Acute Care; ATTEND Nurse Practitioner Acute Care
DX: G90.8 Other disorders of autonomic nervous system (principal); N17.0 Acute kidney failure with tubular necrosis; G90.3 Multi-system degeneration of the autonomic nervous system; I10 Essential (primary) hypertension; Z86.73 Personal history of transient ischemic attack (TIA), and cerebral infarction without residual deficits; E86.0 Dehydration; G20 Parkinson's disease; I35.0 Nonrheumatic aortic (valve) stenosis; I25.10 Atherosclerotic heart disease of native coronary artery without angina pectoris; C06.9 Malignant neoplasm of mouth, unspecified; Z79.01 Long term (current) use of anticoagulants; Z79.82 Long term (current) use of aspirin; Z79.899 Other long term (current) drug therapy
CPT/HCPCS: 36415; 71045-TC; 80048-TC; 80061-TC; 80076-TC; 82728-TC; 83540-TC; 83735-TC; 84100-TC; 84484-TC; 85025-TC; 87081-TC; 93307-TC; G0378; J2916; J3490; J7030